=== PATIENT | female | born 1990 | race Two or more races ===

== ENCOUNTER 2018-04-28 12:41 | Emergency (ER) | payer OTHER ==
[~2018-04-28] VITALS: Ht 157.5 cm; Wt 68.0 kg
[~2018-04-28 12:41] MED LIST: PREN-58 PO
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
[2018-04-28] MEDS ORDERED: LORAZEPAM INJ 2 MG/ML VIAL IVP ONE (13:00)
[2018-04-28] MEDS ORDERED: IV NS 0.9% 1,000 ML BAG IV ONE (13:00)
--- NOTE | 2018-04-28 13:00 | NUR ---
DR STORM AT BEDSIDE.
[2018-04-28] MEDS ORDERED: LORAZEPAM INJ 2 MG/ML VIAL ONE (13:11)
[2018-04-28 13:22] LABS: CALCIUM, SERUM 9.1 mg/dL (8.5-10.1); CREATININE 0.7 mg/dL (0.6-1.3); POTASSIUM 3.1 mmol/L (3.5-5.1)
[2018-04-28] MEDS ORDERED: POTASSIUM CHLORIDE 20 MEQ TAB.PRT.SR PO ONE ×2 (13:30→13:38)
--- NOTE | 2018-04-28 14:28 | NUR ---
IV removed. Catheter intact and site benign. Pressure and 4x4 applied to site. No bleeding noted.Patient discharged to home in stable condition. Written and verbal after care instructions given. Patient verbalizes understanding of instruction.
[2018-04-28 14:39] VITALS: BP 104/68
== END 2018-04-28 14:28 | disposition home or self-care (01) ==
LOC: ER 12:43
DX: G40.909 Epilepsy, unspecified, not intractable, without status epilepticus (principal); E87.6 Hypokalemia
CPT/HCPCS: 36415; 80048; 96374; 99283; A4606; J2060; J7030